=== PATIENT | female | born 1995 | race Hispanic/Latino ===

== ENCOUNTER 2016-11-03 13:21 | Emergency (ER) | payer SELFPAY ==
[2016-11-03 15:51] LABS: Basophils % (Auto) 0.4 % (0.0-1.8); Eosinophils % (Auto) 0.5 % (0.0-4.3); Hematocrit 42.7 % (30.3-42.9); Mean Corpuscular HGB Conc 33 % (30-34); Mean Corpuscular Hemoglobin 31 pg (28-32); Mean Corpuscular Volume 94 fl (79-97); Platelet Count 304 K/mm3 (140-440); Red Blood Count 4.55 M/mm3 (3.65-5.03); Red Cell Distribution Width 13.3 % (13.2-15.2); White Blood Count 8.5 K/mm3 (4.5-11.0)
[2016-11-03 16:02] LABS: Anion Gap 18 mmol/L; Blood Urea Nitrogen 5 mg/dL (7-17); Carbon Dioxide 24 mmol/L (22-30); Chloride 99.8 mmol/L (98-107); Glucose 99 mg/dL (65-100); Potassium 3.8 mmol/L (3.6-5.0); Sodium 138 mmol/L (137-145)
[2016-11-03 17:06] LABS: Bilirubin,Urine NEG (Negative); Blood,Urine MOD (Negative); Ketones,Urine 80 mg/dL (Negative); Leukocyte Esterase,Urine TR (Negative); Mucus,Urine 3+ /HPF; Nitrite,Urine NEG (Negative)
[2016-11-03] MEDS ORDERED: ZOFRAN IV ONE (19:20)
[2016-11-03] MEDS ORDERED: NACL 0.9% 1000 ML 1,000 ML IV ONE (19:20)
[2016-11-03] MEDS ORDERED: ROCEPHIN/NS 1 GM/50 ML 1 GM/50 ML BAG IV ONE (19:22)
--- NOTE | 2016-11-03 19:24 | Emergency Department Report ---
ED Female HPI - General Chief complaint: Nausea/Vomiting/Diarrhea Stated complaint: N/V Time Seen by Provider: 11/03/16 19:08 Source: patient, family, EMS Mode of arrival: Ambulatory Limitations: No Limitations - History of Present Illness Initial comments: Patient here reports that she recently found out about . She says she had a positive home test. No confirmed or care. She is complaining and nausea she came via EMS. Last menstrual period was 09/14. Patient is 2 para 1. No related complication. She reports some vaginal discharge that is brownish. She states that she is seeking a concert because she has planned set up for 3 PM tomorrow. She states that she is having pelvic pain. Denies any vaginal bleeding. She said she's been having nausea and vomiting for less than a week. Pain is cramping and has not taken any IV fluid. She said they gave her a little IV fluid in the ambulance. She is also complaining of some urinary burning in. Denies any back pain. MD Complaint: vaginal discharge, dysuria, pelvic pain, other (positive home prgnancy) Onset/Timin -: days(s) Radiation: suprapubic Severity: moderate Severity scale (0 -10): 5 Quality: cramping Consistency: intermittent Improves with: none Worsens with: urination Are you Now?: Yes (positive home test) Last Menstrual Period: 09/14/16 EDC: 06/21/17 Associated Symptoms: vaginal discharge, abdominal pain, nausea/vomiting, dysuria. denies: vaginal bleeding, fever/chills, headaches, loss of appetite, hematuria, rash, seizure, shortness of breath, syncope, weakness - Related Data Sexually active: Yes (she says she is not concerned about STDs) Previous Rx's Medication Instructions Recorded Last Taken Type Nitrofurantoin Howell/M-Cryst 100 mg PO Q12HR #14 capsule 11/03/16 Unknown Rx [Macrobid CAP] metroNIDAZOLE [Flagyl] 500 mg PO Q12HR #14 tab 11/03/16 Unknown Rx Allergies Allergy/AdvReac Type Severity Reaction Status Date / Time morphine Allergy Swelling Verified 11/03/16 20:09 ED Review of Systems ROS: Stated complaint: N/V Other details as noted in HPI Comment: All other systems reviewed and negative Constitutional: no symptoms reported Respiratory: no symptoms reported Cardiovascular: denies: chest pain, palpitations, edema, syncope Gastrointestinal: abdominal pain, nausea, vomiting. denies: diarrhea, constipation, hematemesis, melena, hematochezia Genitourinary: dysuria, discharge, abnormal menses. 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 - Family History Family history: no significant - Social History Smoking Status: Current Every Day Smoker Substance Use Type: Non Opiate Pain Other Social History: Single - Medications Home Medications: Home Medications Medication Instructions Recorded Confirmed Last Taken Type Nitrofurantoin Howell/M-Cryst 100 mg PO Q12HR #14 capsule 11/03/16 Unknown Rx [Macrobid CAP] metroNIDAZOLE [Flagyl] 500 mg PO Q12HR #14 tab 11/03/16 Unknown Rx ED Physical Exam - General Limitations: No Limitations General appearance: alert, in no apparent distress - Head Head exam: Present: atraumatic, normocephalic - Eye Eye exam: Present: normal appearance, PERRL, EOMI Pupils: Present: normal accommodation - ENT ENT exam: Present: normal orophraynx, mucous membranes dry - Neck Neck exam: Present: normal inspection, full ROM. Absent: tenderness, lymphadenopathy - Respiratory Respiratory exam: Present: normal lung sounds bilaterally. Absent: respiratory distress, chest wall tenderness, accessory muscle use - Cardiovascular Cardiovascular Exam: Present: regular rate, normal rhythm, normal heart sounds - GI/Abdominal GI/Abdominal exam: Present: soft, normal bowel sounds. Absent: distended, tenderness, guarding, rebound, rigid, organomegaly, mass, bruit, hernia - External exam: Present: normal external exam. Absent: erythema, swelling, lesions, lacerations, ecchymosis, bleeding Speculum exam: Present: vaginal discharge, cervical discharge. Absent: erythema , vaginal bleeding, foreign body, tissue, laceration Bi-manual exam: Present: normal bi-manual exam. Absent: cervical motion tendernes, adnexal tenderness, adnexal mass, uterine enlargement, uterine tenderness - Expanded Exam Expanded Female exam: Absent: vaginal laceration, tissue present in vagina, herpetic lesions, vulvar erythema, vulvar tenderness, foreign body Manual exam: Present: station Amniotic fluid: Present: none Speculum exam: Present: cervical OS closed, vaginal discharge. Absent: vaginal bleeding - Extremities Exam Extremities exam: Present: normal inspection, full ROM, normal capillary refill. Absent: tenderness, pedal edema, joint swelling, calf tenderness - Back Exam Back exam: Present: normal inspection, full ROM. Absent: tenderness, CVA tenderness (R), CVA tenderness (L), muscle spasm, paraspinal tenderness, vertebral tenderness, rash noted - Neurological Exam Neurological exam: Present: alert, oriented X3, normal gait, reflexes normal. Absent: motor sensory deficit - Psychiatric Psychiatric exam: Present: normal affect, normal mood - Skin Skin exam: Present: warm, dry, intact, normal color. Absent: rash ED Course Vital Signs 11/03/16 11/03/16 11/03/16 15:11 18:40 19:30 Temperature 98.2 F 99.5 F 99.0 F Pulse Rate 78 92 H 76 Respiratory 20 16 20 Rate Blood Pressure 106/62 Blood Pressure 98/63 107/91 [Left] O2 Sat by Pulse 98 97 100 Oximetry - Reevaluation(s) Reevaluation #1: 11/03/16 21:08 Patient given Rocephin 1 g IM to cover UTI and possible gonorrhea. Azithromycin 1 g by mouth to cover chlamydia. Patient wet prep positive for many polymorphonuclear cells which indicates she possibly has STD. Her vaginal discharge was discolored and malodorous. She is also positive for clue cells greater than 20% and negative for yeast and Trichomonas. She was also given IV fluids 1 L emergency room due to dehydration with positive ketones and oral mucosa dry. ED Medical Decision Making - Lab Data Result diagrams: 11/03/16 15:29 11/03/16 15:29 Lab Results 11/03/16 11/03/16 11/03/16 Range/Units 15:29 15:29 15:29 WBC 8.5 (4.5-11.0) K/mm3 RBC 4.55 (3.65-5.03) M/mm3 Hgb 14.0 (10.1-14.3) gm/dl Hct 42.7 (30.3-42.9) % MCV 94 (79-97) fl MCH 31 (28-32) pg MCHC 33 (30-34) % RDW 13.3 (13.2-15.2) % Plt Count 304 (140-440) K/mm3 Lymph % (Auto) 23.4 (13.4-35.0) % Howell % (Auto) 5.8 (0.0-7.3) % Eos % (Auto) 0.5 (0.0-4.3) % Baso % (Auto) 0.4 (0.0-1.8) % Lymph # 2.0 (1.2-5.4) K/mm3 Howell # 0.5 (0.0-0.8) K/mm3 Eos # 0.0 (0.0-0.4) K/mm3 Baso # 0.0 (0.0-0.1) K/mm3 Seg Neutrophils % 69.9 (40.0-70.0) % Seg Neutrophils # 5.9 (1.8-7.7) K/mm3 Sodium 138 (137-145) mmol/L Potassium 3.8 (3.6-5.0) mmol/L Chloride 99.8 (98-107) mmol/L Carbon Dioxide 24 (22-30) mmol/L Anion Gap 18 mmol/L BUN 5 L (7-17) mg/dL Creatinine 0.4 L (0.7-1.2) mg/dL Estimated GFR > 60 ml/min BUN/Creatinine Ratio 12.50 % Glucose 99 (65-100) mg/dL Calcium 9.0 (8.4-10.2) mg/dL Lipase (13-60) units/L HCG, Quant 61813 H (0-4) mIU/mL Urine Color (Yellow) Urine Turbidity (Clear) Urine pH (5.0-7.0) Ur Specific [place] (1.003-1.030) Urine Protein (Negative) mg/dL Urine Glucose (UA) (Negative) mg/dL Urine Ketones (Negative) mg/dL Urine Blood (Negative) Urine Nitrite (Negative) Urine Bilirubin (Negative) Urine Urobilinogen (<2.0) mg/dL Ur Leukocyte Esterase (Negative) Urine WBC (Auto) (0.0-6.0) /HPF Urine RBC (Auto) (0.0-6.0) /HPF U Epithel Cells (Auto) (0-13.0) /HPF Urine Mucus /HPF Blood Type Antibody Screen 11/03/16 11/03/16 11/03/16 Range/Units 15:29 16:34 19:42 WBC (4.5-11.0) K/mm3 RBC (3.65-5.03) M/mm3 Hgb (10.1-14.3) gm/dl Hct (30.3-42.9) % MCV (79-97) fl MCH (28-32) pg MCHC (30-34) % RDW (13.2-15.2) % Plt Count (140-440) K/mm3 Lymph % (Auto) (13.4-35.0) % Howell % (Auto) (0.0-7.3) % Eos % (Auto) (0.0-4.3) % Baso % (Auto) (0.0-1.8) % Lymph # (1.2-5.4) K/mm3 Howell # (0.0-0.8) K/mm3 Eos # (0.0-0.4) K/mm3 Baso # (0.0-0.1) K/mm3 Seg Neutrophils % (40.0-70.0) % Seg Neutrophils # (1.8-7.7) K/mm3 Sodium (137-145) mmol/L Potassium (3.6-5.0) mmol/L Chloride (98-107) mmol/L Carbon Dioxide (22-30) mmol/L Anion Gap mmol/L BUN (7-17) mg/dL Creatinine (0.7-1.2) mg/dL Estimated GFR ml/min BUN/Creatinine Ratio % Glucose (65-100) mg/dL Calcium (8.4-10.2) mg/dL Lipase 28 (13-60) units/L HCG, Quant (0-4) mIU/mL Urine Color Yellow (Yellow) Urine Turbidity Clear (Clear) Urine pH 6.0 (5.0-7.0) Ur Specific [place] 1.025 (1.003-1.030) Urine Protein 30 mg/dl (Negative) mg/dL Urine Glucose (UA) Neg (Negative) mg/dL Urine Ketones 80 (Negative) mg/dL Urine Blood Mod (Negative) Urine Nitrite Neg (Negative) Urine Bilirubin Neg (Negative) Urine Urobilinogen 2.0 (<2.0) mg/dL Ur Leukocyte Esterase Tr (Negative) Urine WBC (Auto) 3.0 (0.0-6.0) /HPF Urine RBC (Auto) 3.0 (0.0-6.0) /HPF U Epithel Cells (Auto) 13.0 (0-13.0) /HPF Urine Mucus 3+ /HPF Blood Type A POSITIVE Antibody Screen Negative Wet prep with greater than 20% to self, many polymorphonuclear cells. Negative Trichomonas and negative yeast Gonorrhea and chlamydia test is pending but patient was treated emperically - Radiology Data Radiology results: report reviewed Ultrasound transvaginal and abdominal OB reveal there is a single living intrauterine gestation visualized. Gestational age is 6 weeks and 6 days and expected date of conception is 06/23/2017 plus or -0.5 weeks. Fetus is currently too small to assess anatomy. Consider follow-up exam at 1820 weeks to evaluate anatomy. No evidence of subchorionic hemorrhage. The yolk sac is slightly irregular. This is nonspecific although can be a sign of increased risk of spontaneous . Gestational sac is somewhat elongated. The amount of amniotic fluid appears low normal. OB ultrasound recommended follow- up to ensure appropriate growth. cardiac activity is a 137 bpm. Right ovary is unremarkable and left ovary was not visualized. - Medical Decision Making ED course: Patient here reports that she has nausea and vomited in and she was brought to the emergency room by EMS. She says she recently found out about . She reports positive home test. But not confirmed and no care. Vasculature. It was a 03/05/2016 she is 2 para 1. She reports a vaginal discharge that is brownish in color and has some odor. Patient says she's been having nausea involving in for more than a week. She is complaining of pelvic cramping and said that she got very small amount of IV fluid in ambulance. Pelvic exam with brownish colored discharge to cervix and cervix is pink . Bimanual exam is normal. Wet prep positive for bacterial vaginosis and many polymorphonuclear cell. I discussed with patient that this could mean that she has Chlamydia or gonorrhea. She chose to be treated Empically for gonorrhea and chlamydia in emergency room. Gonorrhea and chlamydia tests is pending. Patient urine with trace leukocyte Estrace, moderate blood without any blood visualized on cervix or in vagina. She also has ketones 80 and her urine and 30 of protein. Ultrasound report revealed intrauterine at 6 weeks and 6 days with heart rate at 137 bpm. Diagnostic status and lab results explained to patient and she voiced understanding. Her CBC and BMP was normal. Positive serum quantitative hCG. Alicia Ayala reports that she has planned surgical for tomorrow at 3 PM. She says she is in school and she cannot have another child at present . Patient with diagnosis of threatened miscarriage, bacterial vaginosis, vaginal discharge with possible STD, early intrauterine , urinary tract infection, dehydration and pelvic pain. Patient was given Rocephin 1 g IV to cover gonorrhea and urinary tract infection, a Zithromax and 1 g by mouth to cover chlamydia and she had no adverse reaction from medication. Patient discharged home with prescription for Macrobid and Flagyl. She is able tolerate by mouth liquids in emergency room. Critical care attestation.: If time is entered above; I have spent that time in minutes in the direct care of this critically ill patient, excluding procedure time. ED Disposition Clinical Impression: Threatened miscarriage, Dehydration during , Pelvic pain during , Bacterial vaginosis, Ketonuria, Concern about sexually transmitted disease in female without diagnosis Acute cystitis during Qualifiers: Trimester: first trimester Qualified Code(s): O23.11 - Infections of bladder in , first trimester Dysuria during Qualifiers: Trimester: first trimester Qualified Code(s): O26.891 - Other specified related conditions, first trimester; R30.0 - Dysuria Protein in urine Qualifiers: Proteinuria type: unspecified Qualified Code(s): R80.9 - Proteinuria, unspecified Vaginal discharge during Qualifiers: Trimester: first trimester Qualified Code(s): O26.891 - Other specified related conditions, first trimester; N89.8 - Other specified noninflammatory disorders of vagina Disposition: DC-01 TO HOME OR SELFCARE Is pt being admited?: No Does the pt Need Aspirin: No Condition: Stable Instructions: Bacterial Vaginosis (ED), Threatened Miscarriage (ED), Dehydration (ED), Abdominal Pain in (ED), Urinary Tract Infection in Women (ED), Dysuria (ED), Sexually Transmitted Diseases (ED), Safe Sex (ED) Additional Instructions: Please practice safe sex Please follow up with [facility]NAGER in 2-3 days Please increase her fluid intake Take all medication as prescribed You Were treated for gonorrhea and chlamydia in emergency room. If you want to know your results, please return to the hospital in 5-7 days with your ID and present to medical records otherwise he can have [facility] MA[facility]GER request her records from the hospital. Prescriptions: metroNIDAZOLE [Flagyl] 500 mg PO Q12HR #14 tab Nitrofurantoin Howell/M-Cryst [Macrobid CAP] 100 mg PO Q12HR #14 capsule Referrals: PRIMARY CARE, [Primary Care Provider] - 3-5 Days Forms: STI Treatment and Prevention, Work/School Release Form(ED)
[2016-11-03] MEDS ORDERED: ZITHROMAX PO ONE (21:06)
--- NOTE | 2016-11-03 23:01 | Ultrasound Report ---
FINAL REPORT PROCEDURE: US OB \T\lt; = 14 WEEKS FETUS TECHNIQUE: Real-time transabdominal sonography of the uterus, placenta, amniotic fluid, adnexa, and fetus was performed with image documentation. Measurements were obtained to determine age/size. M-mode Doppler was used to document heartbeat. CPT 74587 HISTORY: with abdominal pain COMPARISON: Transvaginal OB ultrasound also performed today. FINDINGS: Images from both transabdominal and transvaginal OB ultrasound both of which were performed today were utilized to generate this report. There is a single living intrauterine gestation currently visualized with a heart rate of 137 beats per minute. [place]-rump length measurement is 8.4 millimeters corresponding to an age of 6 weeks 6 days. Fetus currently too small to assess anatomy. No gross abnormality is seen. Yolk sac is visualized although has slightly irregular contour. This is nonspecific although can be an indicator of increased risk of spontaneous . I do not see evidence of subchorionic hemorrhage. The gestational sac is elongated. The amount of amniotic fluid low normal. No uterine masses are identified. No free fluid is seen in the cul-de-sac. Right ovary is unremarkable measuring 2.5 x 1.5 x 2.8 centimeter. The left ovary was not well visualized. IMPRESSION: There is a single living intrauterine gestation visualized. By crown-rump length measurement the estimated age is 6 weeks 6 days placing the EDC at 06/23/2017 +/-0.5 weeks. Fetus currently too small to assess anatomy. Consider follow-up exam at 18-20 weeks to evaluate anatomy. No evidence of subchorionic hemorrhage. The yolk sac is slightly irregular. This is nonspecific although can be a sign of increased risk of spontaneous . Gestational sac is somewhat elongated. The amount of amniotic fluid appears low normal. Follow-up Ob ultrasound recommended to ensure appropriate growth. Right ovary is unremarkable. Left ovary was not seen. No abnormal masses were seen on the left.
--- NOTE | 2016-11-03 23:03 | Ultrasound Report ---
FINAL REPORT PROCEDURE: US OB TRANSVAGINAL TECHNIQUE: Real-time transvaginal sonography of the uterus, placenta, amniotic fluid, adnexa, and fetus was performed with image documentation. Measurements were obtained to determine age/size. M-mode Doppler was used to document heartbeat. CPT 68483 HISTORY: with abdominal pain COMPARISON: Transabdominal OB ultrasound also performed today.. FINDINGS: Images from both transabdominal and transvaginal OB ultrasound both of which were performed today were utilized to generate this report. There is a single living intrauterine gestation currently visualized with a heart rate of 137 beats per minute. [place]-rump length measurement is 8.4 millimeters corresponding to an age of 6 weeks 6 days. Fetus currently too small to assess anatomy. No gross abnormality is seen. Yolk sac is visualized although has slightly irregular contour. This is nonspecific although can be an indicator of increased risk of spontaneous . I do not see evidence of subchorionic hemorrhage. The gestational sac is elongated. The amount of amniotic fluid low normal. No uterine masses are identified. No free fluid is seen in the cul-de-sac. Right ovary is unremarkable measuring 2.5 x 1.5 x 2.8 centimeter. The left ovary was not well visualized. IMPRESSION: There is a single living intrauterine gestation visualized. By crown-rump length measurement the estimated age is 6 weeks 6 days placing the EDC at 06/23/2017 +/-0.5 weeks. Fetus currently too small to assess anatomy. Consider follow-up exam at 18-20 weeks to evaluate anatomy. No evidence of subchorionic hemorrhage. The yolk sac is slightly irregular. This is nonspecific although can be a sign of increased risk of spontaneous . Gestational sac is somewhat elongated. The amount of amniotic fluid appears low normal. Follow-up Ob ultrasound recommended to ensure appropriate growth.
[2016-11-03 23:42] VITALS: BP 104/60
== END 2016-11-03 23:48 | disposition home or self-care (01) ==
LOC: ED 13:21
DX: O23.11 Infections of bladder in pregnancy, first trimester (principal); O20.0 Threatened abortion; O26.891 Other specified pregnancy related conditions, first trimester; Z3A.01 Less than 8 weeks gestation of pregnancy; R80.9 Proteinuria, unspecified; N76.0 Acute vaginitis; Z88.5 Allergy status to narcotic agent
CPT/HCPCS: 36415; 76801; 76817; 80048; 81001; 83690; 84702; 85025; 86850; 86900; 86901; 87210; 87591; 96365; 96375; 99285; J0696; J2405; J7030